=== PATIENT | male | born 1980 | race Caucasian/White ===

== ENCOUNTER 2017-03-11 14:39 | Emergency (ER) | payer BC ==
[2017-03-11 14:48] VITALS: RESP 18; O2SAT 96
[2017-03-11] MEDS ORDERED: NS 1,000 ML IV ONE (15:51)
--- NOTE | 2017-03-11 15:54 | EDPHY ---
H & P Stated Complaint: seen yesterday at /for abd pain/itchyskin/liver enzymes elevated Time Seen by Provider: 03/11/17 15:45 HPI/ROS: CHIEF COMPLAINT: Elevated LFTs HISTORY OF PRESENT ILLNESS: The patient is a 36-year-old man who was seen yesterday at the Urgent Care complaining of itching and dark colored urine and right upper quadrant pain a few days ago and nausea when he eats. Labs were drawn and he was discharged. Today he was called and told to come to the ER because his liver tests were elevated. He denies fevers. He denies any changes in his stool. He has to eat very slowly or he becomes nauseous. He has been treated in the past for peptic ulcer disease. REVIEW OF SYSTEMS: Constitutional: denies: chills, fever, recent illness, recent injury EENTM: denies: blurred vision, double vision, nose congestion Respiratory: denies: cough, shortness of breath Cardiac: denies: chest pain, irregular heart rate, lightheadedness, palpitations Gastrointestinal/Abdominal: See HPI denies: abdominal pain, diarrhea, vomiting , blood streaked stools Genitourinary: denies: dysuria, frequency, hematuria, pain Musculoskeletal: denies: joint pain, muscle pain Skin: denies: lesions, rash, jaundice, bruising Neurological: denies: headache, numbness, paresthesia, tingling, dizziness, weakness Hematologic/Lymphatic: denies: blood clots, easy bleeding, easy bruising Immunologic/allergic: denies: HIV/AIDS, transplant EXAM: GENERAL: Well-appearing, well-nourished and in no acute distress. HEAD: Atraumatic, normocephalic. EYES: Pupils equal round and reactive to light, extraocular movements intact, sclera anicteric, conjunctiva are normal. ENT: TMs normal, nares patent, oropharynx clear without exudates. Moist mucous membranes. NECK: Normal range of motion, supple without lymphadenopathy or JVD. LUNGS: Breath sounds clear to auscultation bilaterally and equal. No wheezes rales or rhonchi. HEART: Regular rate and rhythm without murmurs, rubs or gallops. ABDOMEN: Soft, nontender, normoactive bowel sounds. No guarding, no rebound. No masses appreciated. BACK: No CVA tenderness, no spinal tenderness, step-offs or deformities EXTREMITIES: Normal range of motion, no pitting or edema. No clubbing or cyanosis. NEUROLOGICAL: Cranial nerves II through XII grossly intact. Normal speech, normal gait. 5/5 strength, normal movement in all extremities, normal sensation PSYCH: Normal mood, normal affect. SKIN: Warm, dry, normal turgor, no visible rashes or lesions. Source: Patient Exam Limitations: No limitations - Personal History Current Tetanus/Diphtheria Vaccine: Yes - Medical/Surgical History Hx Asthma: No Hx Chronic Respiratory Disease: No Hx Diabetes: No Hx Cardiac Disease: No Hx Renal Disease: No Hx Cirrhosis: No Hx Alcoholism: No Hx HIV/AIDS: No Hx Splenectomy or Spleen Trauma: No Other PMH: appy - Family History Significant Family History: No pertinent family hx - Social History Smoking Status: Never smoked Alcohol Use: Sober Drug Use: None Constitutional: Initial Vital Signs Temperature (C) 36.4 C 03/11/17 14:45 Heart Rate 62 03/11/17 14:45 Respiratory Rate 18 03/11/17 14:45 Blood Pressure 132/89 H 03/11/17 14:45 O2 Sat (%) 96 03/11/17 14:45 O2 Delivery Mode Room Air Allergies/Adverse Reactions: No Known Allergies Allergy (Unverified 03/11/17 14:45) Home Medications: Medication Instructions Recorded hydrOXYzine HCL [Vistaril 25MG] 25 mg PO TID PRN #30 tab 03/11/17 Medical Decision Making - Diagnostics Imaging Results: Imaging Impressions Abdomen Ultrasound 03/11/17 15:51 Impression: 1. Hepatomegaly and hepatic steatosis with 2 suspected foci of focal fatty sparing. 2. Gallbladder hydrops and mild dilatation of the common bile duct may be due to narrowing or obstruction at the major papilla. No discernible common bile duct stone or pancreatic mass; however, imaging of the distal duct and pancreatic head is extremely limited. 3. No ascites or splenomegaly. Comment: Consider MRI of the abdomen without and with IV contrast and MRCP to optimally characterize liver lesions and source for biliary dilation. Findings discussed with Emergency Department physician, Deion Pearson on 2016 at 1715 hours. Imaging: Discussed imaging studies w/ outbound call center representative Radiologist ED Course/Re-evaluation: We discussed the lab and imaging results with the patient and with Dr. Parrish who is on-call for Gastroenterology. The patient's abdominal exam remains nontender. He feels that the patient most likely has hepatitis a in encourage discharge with follow-up in their clinic next week. Also with medication to help control the itching. Patient and understand agree with this plan. We discussed indications for returning to the emergency department. Differential Diagnosis: Partial list of the Differential diagnosis considered include but were not limited to; hepatitis, biliary disease, allergic reaction and although unlikely based on the history and physical exam, I also considered tumor, thrombus. I discussed these differential diagnoses and the plan with the patient as well as the usual and expected course. The patient understands that the diagnosis is provisional and that in medicine we are not always correct and that further workup is often warranted. Usual and customary warnings were given. All of the patient's questions were answered. The patient was instructed to return to the emergency department should the symptoms at all worsen or return, otherwise to followup with the physician as we discussed. - Data Points Laboratory Results: Laboratory Results 03/11/17 16:00 03/11/17 16:00 03/11/17 03/11/17 03/11/17 16:41 16:00 16:00 WBC RBC Hgb Hct MCV MCH MCHC RDW Plt Count MPV Neut % (Auto) Lymph % (Auto) [place] % (Auto) Eos % (Auto) Baso % (Auto) Nucleat RBC Rel Count Absolute Neuts (auto) Absolute Lymphs (auto) Absolute Monos (auto) Absolute Eos (auto) Absolute Basos (auto) Absolute Nucleated RBC Immature Gran % Immature Gran # Sodium 145 mEq/L H mEq/L (134-144) Potassium 4.4 mEq/L mEq/L (3.5-5.2) Chloride 107 mEq/L mEq/L (97-110) Carbon Dioxide 25 mEq/l mEq/l (22-31) Anion Gap 13 mEq/L mEq/L (8-16) BUN 12 mg/dL mg/dL (7-23) Creatinine 1.0 mg/dL mg/dL (0.7-1.3) Estimated GFR > 60 Glucose 97 mg/dL mg/dL (70-100) Calcium 10.0 mg/dL mg/dL (8.5-10.4) Total Bilirubin 2.0 mg/dL H mg/dL (0.1-1.4) Conjugated Bilirubin 1.4 mg/dL H mg/dL (0.0-0.5) Unconjugated Bilirubin 0.6 mg/dL mg/dL (0.0-1.1) AST 144 IU/L H IU/L (17-59) ALT 491 IU/L H IU/L (21-72) Alkaline Phosphatase 177 IU/L H IU/L (38-126) Total Protein 7.6 g/dL g/dL (6.3-8.2) Albumin 4.6 g/dL g/dL (3.5-5.0) Lipase 473.0 IU/L H IU/L (23-300) Urine Color YELLOW Urine Appearance CLEAR Urine pH 6.0 (5.0-7.5) Ur Specific [place] 1.005 (1.002-1.030) Urine Protein NEGATIVE (NEGATIVE) Urine Ketones NEGATIVE (NEGATIVE) Urine Blood NEGATIVE (NEGATIVE) Urine Nitrate NEGATIVE (NEGATIVE) Urine Bilirubin NEGATIVE (NEGATIVE) Urine Urobilinogen 2.0 EU H EU (0.2-1.0) Ur Leukocyte Esterase NEGATIVE (NEGATIVE) Urine RBC 0-1 /hpf /hpf (0-3) Urine WBC 1-3 /hpf /hpf (0-3) Ur Epithelial Cells TRACE /lpf /lpf (NONE-1+) Urine Glucose NEGATIVE (NEGATIVE) Hepatitis A IgM Ab NEGATIVE (NEGATIVE) Hep Bs Antigen NEGATIVE (NEGATIVE) Hep B Core IgM Ab NEGATIVE (NEGATIVE) Hepatitis C Antibody NEGATIVE (NEGATIVE) 03/11/17 16:00 WBC 7.74 10^3/uL 10^3/uL (3.80-9.50) RBC 4.92 10^6/uL 10^6/uL (4.40-6.38) Hgb 15.1 g/dL g/dL (13.7-17.5) Hct 45.2 % % (40.0-51.0) MCV 91.9 fL fL (81.5-99.8) MCH 30.7 pg pg (27.9-34.1) MCHC 33.4 g/dL g/dL (32.4-36.7) RDW 12.9 % % (11.5-15.2) Plt Count 242 10^3/uL 10^3/uL (150-400) MPV 11.2 fL fL (8.7-11.7) Neut % (Auto) 54.5 % % (39.3-74.2) Lymph % (Auto) 32.6 % % (15.0-45.0) [place] % (Auto) 8.3 % % (4.5-13.0) Eos % (Auto) 2.8 % % (0.6-7.6) Baso % (Auto) 1.0 % % (0.3-1.7) Nucleat RBC Rel Count 0.0 % % (0.0-0.2) Absolute Neuts (auto) 4.22 10^3/uL 10^3/uL (1.70-6.50) Absolute Lymphs (auto) 2.52 10^3/uL 10^3/uL (1.00-3.00) Absolute Monos (auto) 0.64 10^3/uL 10^3/uL (0.30-0.80) Absolute Eos (auto) 0.22 10^3/uL 10^3/uL (0.03-0.40) Absolute Basos (auto) 0.08 10^3/uL 10^3/uL (0.02-0.10) Absolute Nucleated RBC 0.00 10^3/uL 10^3/uL (0-0.01) Immature Gran % 0.8 % % (0.0-1.1) Immature Gran # 0.06 10^3/uL 10^3/uL (0.00-0.10) Sodium Potassium Chloride Carbon Dioxide Anion Gap BUN Creatinine Estimated GFR Glucose Calcium Total Bilirubin Conjugated Bilirubin Unconjugated Bilirubin AST ALT Alkaline Phosphatase Total Protein Albumin Lipase Urine Color Urine Appearance Urine pH Ur Specific [place] Urine Protein Urine Ketones Urine Blood Urine Nitrate Urine Bilirubin Urine Urobilinogen Ur Leukocyte Esterase Urine RBC Urine WBC Ur Epithelial Cells Urine Glucose Hepatitis A IgM Ab Hep Bs Antigen Hep B Core IgM Ab Hepatitis C Antibody Medications Given: Discontinued Medications Sodium Chloride (Ns) 1,000 mls @ 0 mls/hr IV EDNOW ONE; Wide Open PRN Reason: Protocol Stop: 03/11/17 15:52 Last Admin: 03/11/17 16:07 Dose: 1,000 mls Departure - Departure Disposition: Home, Routine, Self-Care Clinical Impression: Hepatitis, Fatty liver Condition: Fair Instructions: Non-Alcoholic Fatty Liver Disease (ED) Referrals: Racheal Hansen MD [Primary Care Provider] - As per Instructions Fidencio Parrish MD [Medical Doctor] - As per Instructions Prescriptions: hydrOXYzine HCL [Vistaril 25MG] 25 mg PO TID PRN #30 tab PRN Reason: Itching
[2017-03-11 16:17] LABS: % IMMATURE GRANULYOCYTES 0.8 % (0.0-1.1); ABSOLUTE IMMATURE GRANULOCYTES 0.06 10^3/uL (0.00-0.10); ADD DIFF? NO; ADD MORPH? NO; ADD SCAN? NO; ATYPICAL LYMPHOCYTE FLAG 0 (0-99); FRAGMENT RBC FLAG 0 (0-99); HEMATOCRIT 45.2 % (40.0-51.0); HEMOGLOBIN 15.1 g/dL (13.7-17.5); LEFT SHIFT FLG 0 (0-99); LIPEMIA HEMOLYSIS FLAG 80 (0-99); MEAN CELL HEMOGLOBIN 30.7 pg (27.9-34.1); MEAN CELL HEMOGLOBIN CONCENTR. 33.4 g/dL (32.4-36.7); MEAN CELL VOLUME 91.9 fL (81.5-99.8); MEAN PLATELET VOLUME 11.2 fL (8.7-11.7); PLATELET CLUMPS FLAG 0 (0-99); PLATELET COUNT 242 10^3/uL (150-400); RED BLOOD CELL COUNT 4.92 10^6/uL (4.40-6.38); RED CELL DISTRIBUTION WIDTH 12.9 % (11.5-15.2)
[2017-03-11 16:28] LABS: ALANINE AMINOTRANSFERASE 491 IU/L (21-72); ALBUMIN 4.6 g/dL (3.5-5.0); ALKALINE PHOSPHATASE 177 IU/L (38-126); ANION GAP 13 mEq/L (8-16); ASPARTATE AMINOTRANSFERASE 144 IU/L (17-59); BILIRUBIN-CONJUGATED 1.4 mg/dL (0.0-0.5); BILIRUBIN-UNCONJUGATED 0.6 mg/dL (0.0-1.1); CARBON DIOXIDE 25 mEq/l (22-31); CHLORIDE 107 mEq/L (97-110); GLOMERULAR FILTRATION RATE > 60; GLUCOSE 97 mg/dL (70-100); POTASSIUM 4.4 mEq/L (3.5-5.2); SODIUM 145 mEq/L (134-144); TOTAL PROTEIN 7.6 g/dL (6.3-8.2)
[2017-03-11 16:35] LABS: COLOR YELLOW; LEUKOCYTE ESTERASE,URINE NEGATIVE (NEGATIVE); NITRITE,URINE NEGATIVE (NEGATIVE)
[2017-03-11 16:39] LABS: RBC,URINE 0-1 /hpf (0-3)
[2017-03-11 17:52] VITALS: BP 116/86; PULSE 57; TEMP 97.9
== END 2017-03-11 17:52 | disposition home or self-care (01) ==
DX: K75.9 Inflammatory liver disease, unspecified (principal); K76.0 Fatty (change of) liver, not elsewhere classified; E86.9 Volume depletion, unspecified
CPT/HCPCS: G0472

== ENCOUNTER 2017-03-23 14:29 | Day surgery (SDC) | payer BC ==
[2017-03-23] MEDS ORDERED: LIDOCAINE 1% 2 ML INJ ONE (14:41)
[2017-03-23] MEDS ORDERED: IOTHALAMATE MEG (CONRAY) 50 ML VIAL IV ONE (14:50)
[2017-03-23] MEDS ORDERED: LR 1,000 ML IV ONE (14:50)
[2017-03-23] MEDS ORDERED: GLUCAGON,HUMAN RECOMBINANT 1 MG VIAL ONE (14:50)
[2017-03-23] MEDS ORDERED: LIDOCAINE 1% 2 ML INJ ID PRN (14:50)
--- NOTE | 2017-03-23 16:34 | PDANEPAE ---
ANE History of Present Illness elevate bili with dilated duct ANE Past Medical History - Cardiovascular History Hx Hypertension: No Hx Arrhythmias: No Hx Chest Pain: No Hx Coronary Artery / Peripheral Vascular Disease: No Hx CHF / Valvular Disease: No Hx Palpitations: No - Pulmonary History Hx COPD: No Hx Asthma/Reactive Airway Disease: No Hx Recent Upper Respiratory Infection: No Hx Oxygen in Use at Home: No Hx Sleep Apnea: Yes Sleep Apnea Screening Result - Last Documented: Positive Pulmonary History Comment: tanisha positive uses cpap- instructed pt to bring to hospital - Neurologic History Hx Cerebrovascular Accident: No Hx Seizures: No Hx Dementia: No - Endocrine History Hx Diabetes: No - Renal History Hx Renal Disorders: No - Liver History Hx Hepatic Disorders: Yes Hepatic History Comment: hepatitis. fatty liver - Neurological & Psychiatric Hx Hx Neurological and Psychiatric Disorders: No - Cancer History Hx Cancer: No - Congenital Disorder History Hx Congenital Disorders: No - GI History Hx Gastrointestinal Disorders: Yes Gastrointestinal History Comment: cholestasis. biliary obstruction - Other Health History Other Health History: wears glasses. jaundice and itching. chronic venous insufficency- iron stains on ankles and legs - Chronic Pain History Chronic Pain: No - Surgical History Prior Surgeries: appy 08/2015 ANE Review of Systems Review of systems is: negative - Exercise capacity Exercise capacity: >=4 METS METS (RN): 4 METS ANE Patient History - Allergies Allergies/Adverse Reactions: No Known Allergies Allergy (Verified 03/22/17 16:12) - Home Medications Home Medications: CHOLESTYRAMINE POWDER 03/22/17 [Last Taken 03/23/17 06:30] - NPO status NPO Status: no food or drink >8 hours NPO Since - Liquids (Date): 03/23/17 NPO Since - Liquids (Time): 13:00 NPO Since - Solids (Date): 03/23/17 NPO Since - Solids (Time): 07:00 - Anes Hx Anes Hx: no prior problems Hx Anesthesia Complications (with details): aspiration event following appy - Smoking Hx Smoking Status: Never smoked - Alcohol Use Alcohol Use: None - Family Anes Hx Family Anes Hx: none Family Hx Anesthesia Complications: none ANE Labs/Vital Signs - Vital Signs Blood Pressure: 226/87 Heart Rate: 63 Respiratory Rate: 15 O2 Sat (%): 94 Height: 175.26 cm Weight: 101.605 kg ANE Physical Exam - Airway Neck exam: FROM Mallampati Score: Class 2 Mouth exam: normal dental/mouth exam - Pulmonary Pulmonary: no respiratory distress - Cardiovascular Cardiovascular: regular rate and rhythym - ASA Status ASA Status: II ANE Anesthesia Plan Anesthesia Plan: general endotracheal anesthesia
[2017-03-23] MEDS ORDERED: fentaNYL 100 MCG/2 ML INJ ONE (17:33)
[2017-03-23] MEDS ORDERED: PROPOFOL 200 MG/20 ML VIAL ONE (17:39)
--- NOTE | 2017-03-23 17:43 | PDGENHP ---
History & Physical Chief Complaint: pruritus History of Present Illness: 36 year old male presents for evaluation of elevated LFTs and dilation of CBD Pertinent Past, Social, Family History: SoHx: No cigs or alcohol. PMHx: HOWARD. FaMHx: No pancreatic cancer Relevant Physical Exam: CV: RRR +s1s2. Lungs: CTAB. Abd: soft, nt, +bs. No guarding or rebound Cardiorespiratory Assessment: ASA: 2. Mall: 2
[2017-03-23] MEDS ORDERED: levOFLOXACIN 500 MG/DEXTROSE/100 ML BAG IV ONE (18:08)
[2017-03-23] MEDS ORDERED: PROMETHAZINE HCL 25 MG/ML INJ IVP PRN ×2 (18:10→19:15)
[2017-03-23] MEDS ORDERED: LR 500 ML IV PRN ×2 (18:10→19:15)
[2017-03-23] MEDS ORDERED: ONDANSETRON 4 MG/2 ML VIAL IVP PRN ×2 (18:10→19:15)
[2017-03-23] MEDS ORDERED: NALOXONE HCL 0.4 MG/ML INJ IVP PRN ×2 (18:10→19:15)
--- NOTE | 2017-03-23 18:10 | POSTOPPROG ---
Post Op Note Date of Operation: 03/24/17 Surgeon: Johny Connors Anesthesia: GET(General Endotracheal) Pre-op Diagnosis: elevated LFTs, Abnl imaging Post-op Diagnosis: gastritis, choledocholithasis Indication: elevated LFTs, abdominal pain, abnl imaging Procedure: EGD with bx, eus, ercp with sphincterotomy, stent, extraction of debris Findings: gastritis, esophagitis, + debris Inf/Abcess present in the surg proc area at time of surgery?: No EBL: Minimal Specimen(s): C.s. gastritis esophagitis mid- esophagus
[2017-03-23] MEDS ORDERED: INDOMETHACIN 50 MG SUPP PR ONE (18:15)
[2017-03-23] MEDS ORDERED: DEXAMETHASONE 4 MG/ML VIAL ONE (19:03)
[2017-03-23] MEDS ORDERED: ONDANSETRON 4 MG/2 ML VIAL ONE (19:03)
[2017-03-23] MEDS ORDERED: SUCCINYLCHOLINE CHLORIDE*ANESTHESIA ONLY*200 MG/10 ML SYR IVP ONE (19:10)
[2017-03-23] MEDS ORDERED: ROCURONIUM 50 MG/5 ML VIAL ONE (19:10)
--- NOTE | 2017-03-23 19:44 | POSTANESTH ---
Post Anesthetic Evaluation Cardiovascular Status: Normal, Stable Respiratory Status: Normal, Stable Level of Consciousness/Mental Status: Can Participate in Eval Pain Control: Adequate, Prn Tx Ordered Nausea/Vomiting Control: Adequate, Prn Tx Ordered Complications Possibly Related to Anesthesia: None Noted
[2017-03-23 19:46] VITALS: PULSE 57; RESP 16; TEMP 97.3
[2017-03-23] MEDS ORDERED: INDOMETHACIN 50 MG SUPP PR PRN (19:58)
[2017-03-23] MEDS ORDERED: NS 500 ML IV SCH (20:00)
[2017-03-23 20:37] VITALS: BP 136/89
[2017-03-23] MEDS ORDERED: PROMETHAZINE HCL 25 MG/ML INJ ONE (20:45)
[2017-03-23 21:37] VITALS: O2SAT 95
--- NOTE | 2017-03-24 05:40 | GPN ---
[f rep st] PROCEDURE NOTE DATE OF PROCEDURE: 03/23/2017 PROCEDURE: Endoscopic retrograde cholangiopancreatography with biliary sphincterotomy, stone extraction as well as placement of a plastic stent. CONSENT: Risks, benefits, and alternatives of the procedure were discussed in great detail with the patient. Risk of infection, bleeding, perforation, sedation, and pancreatitis were discussed. All questions answered and informed consent obtained. MEDICATIONS: General anesthesia, please see anesthesia details. Levaquin 500 mg IV x1. Indomethacin rectal 100 mg x1. ESTIMATED BLOOD LOSS: Insignificant. ERCP EXAMINATION: An Olympus duodenoscope was inserted in the mouth and advanced to the second portion of the duodenum. The ampulla was brought into view and was normal in appearance. Using a [employer] sphincterotome and a 0.035 inch wire, a wire was advanced into the common bile duct and intrahepatics after approximately 4 tries using the wire guided technique. A 1 cm biliary sphincterotomy was performed. A limited injection was made to confirm position. A 12mm balloon was used for an occlusion cholangiogram, the common bile duct was noted to be dilated. A 2cm distal CBD stricture noted. Ductal contrast flow was adequate and image quality was adequate. I personally interpreted the images in real-time. Balloon sweeps were made with the 12mm balloon with extraction of debris. A 10 x 7-[place] stent was placed in the common bile duct with excellent flow of bile. Excess air was suctioned. Procedure terminated. IMPRESSION: 1. Malignant stricture status post stent placement. 2. Balloon sweep with extraction of debris. 3. Placement of a temporary plastic stent. RECOMMENDATION: 1. Clear liquid diet until tomorrow. 2. Ciprofloxacin 500 mg p.o. b.i.d. x5 days. /[id number]/MODL MTDD
--- NOTE | 2017-03-24 05:55 | GPN ---
[f rep st] PROCEDURE NOTE DATE OF PROCEDURE: 03/23/2017 PROCEDURE: Esophagogastroduodenoscopy with biopsy. Endoscopic ultrasound with fine-needle aspiration. INDICATIONS: The patient is a 36-year-old male who presents with nausea, increased liver functions as well as a dilated common bile duct. He presents for further evaluation. CONSENT: Risks, benefits, and alternatives of the procedure were discussed in great detail with the patient. Risk of infection, bleeding, perforation, sedation, and pancreatitis were discussed. All questions answered and informed consent was obtained. MEDICATION: General anesthesia. Please see anesthesiology for details. ESTIMATED BLOOD LOSS: Insignificant. ESOPHAGOGASTRODUODENOSCOPY EXAMINATION: The Olympus upper endoscope was introduced in the mouth and advanced to the esophagus. The patient was noted to have a ringed appearance with linear furrows in the esophagus. Biopsies taken. At the gastroesophageal junction, LA grade B esophagitis noted and biopsies were taken. The stomach was entered and closely examined, including retroflexed views of the angularis, cardia, and fundus. The patient was noted to have erythematous mucosa in the antrum and body of stomach in an erythematous distribution and biopsies were taken. The duodenal bulb was normal in appearance. In the second portion of duodenum, the folds did appear to be scalloped and biopsies taken. ENDOSCOPIC ULTRASOUND EXAMINATION: The Olympus linear echoendoscope was entered in the mouth and advanced to the 2nd portion of the duodenum. The esophagus, stomach, and duodenum were visualized endosonographically. The common bile duct was dilated. It measured approximately 1 cm. The periportal node of approximately 1 cm was noted. It was round, hypoechoic, with indistinct margins. Doppler was used to rule out intervening vessel. One pass was made with a [employer] 25-gauge needle into the lesion. Cytology present saw benign lymphocytes. In the head of the pancreas, a 2 x 1.5 cm hypoechoic mass with indistinct margins was noted. Doppler was used to rule out any vessels. Four transduodenal passes were made with a [employer] 25-gauge needle into lesion. Cytology was present and stated that the results were lesional. Unsure whether this is a neuroendocrine versus a lymphoma. One pass was made and placed directly and placed into [facility]to[facility]yt. The pancreas was carefully examined. He was noted to have hyperechoic foci. The main pancreatic duct was not dilated. No obvious liver lesions were noted. The gallbladder was seen and was distended. Minimal debris was noted. IMPRESSION: 1. Pancreatic mass/head of pancreas status post fine-needle aspiration. Cytology pending. 2. Dilated common bile duct. 3. Periportal node, enlarged, post fine-needle aspiration. Preliminary report reveals benign lymphocytes. 4. Gastritis, status post biopsy. 5. Esophagitis, status post biopsy. 6. Ringed esophagus, status post biopsy. RECOMMENDATIONS: 1. Follow up on biopsy results. 2. Proceed with ERCP. /[id number]/MODL MTDD
[2017-03-27 14:16] LABS: FINAL DIAGNOSIS See Comments; MICROSCOPIC DESCRIPTION See Comments
== END 2017-03-23 21:35 | disposition home or self-care (01) ==
LOC: FSGY 14:29
PROVIDERS: ATTEND Internal Medicine Gastroenterology
DX: K86.9 Disease of pancreas, unspecified (principal); K29.70 Gastritis, unspecified, without bleeding; K20.9 Esophagitis, unspecified; K80.20 Calculus of gallbladder without cholecystitis without obstruction
CPT/HCPCS: 88184-90; 88185-91; C2625; J0330; J1100; J1610; J1956; J2405; J2550; J2704; J3010; Q9961